=== PATIENT | female | born 1990 | race Caucasian/White ===

== ENCOUNTER 2020-03-02 05:05 | Inpatient (IN) | payer MEDICAID ==
[~2020-03-02 05:05] MED LIST: Lidocaine 1.5% with EPINEPHrine 1:200,000 5 ML Amp ONE
[2020-03-02] MEDS ORDERED: Nalbuphine 10 MG/1 ML Vial IVPUSH PRN (05:57)
[2020-03-02] MEDS ORDERED: Sodium Chloride 0.9% 10 ML Syringe FLUSH PRN (05:57)
[2020-03-02] MEDS ORDERED: Oxytocin/Lactated Ringers 10 UNIT/1,000 ML BAG IV SCH ×2 (06:00)
--- NOTE | 2020-03-02 07:03 | PCM.LDHP ---
L&D History of Present Illness - General Date of Service: 03/02/20 Admit Problem/Dx: Patient Status Order with Admit Dx/Problem 03/02/20 05:22 Patient Status [ADT] Routine 03/02/20 05:57 Patient Status [ADT] Routine Admission Diagnosis/Problem Admission Diagnosis/Problem Source of Information: Patient History Limitations: Reports: No Limitations - History of Present Illness Introduction:: Patient is a 29 y/o at 40 4/7 wks who presented early this AM with SROM/labor. Contractions very intense. No other concerns - Related Data Allergies/Adverse Reactions: Allergies Allergy/AdvReac Type Severity Reaction Status Date / Time Penicillins Allergy Rash Verified 03/02/20 05:57 salicylic acid Allergy Rash Verified 03/02/20 05:57 Home Medications: Home Meds Pnv No.95/Ferrous Fum/Folic AC [ Tablet] 1 each PO DAILY 03/02/20 [History] Past Medical History Cardiovascular History: Reports: Other (See Below) Other Cardiovascular History: enlarged aortic valve. followed up with echo as a child. 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 Para: 0 LMP (Approximate): - Infectious Disease History Infectious Disease History: Reports: Chicken Pox Other Infectious Disease History: as a child - Past Surgical History HEENT Surgical History: Reports: Naso-Sinus Surgery Social & Family History - Tobacco Use Tobacco Use Status *Q: Former Tobacco User Used Tobacco, but Quit: Yes Month/Year Tobacco Last Used: 06/22/2019 - Alcohol Use Alcohol Use History: No - Recreational Drug Use Recreational Drug Use: No H&P Review of Systems - Review of Systems: Review Of Systems: See Below General: Reports: No Symptoms Pulmonary: Reports: No Symptoms Cardiovascular: Reports: No Symptoms Gastrointestinal: Reports: No Symptoms Genitourinary: Reports: No Symptoms Musculoskeletal: Reports: No Symptoms Psychiatric: Reports: No Symptoms Neurological: Reports: No Symptoms L&D Exam - Exam Exam: See Below - Vital Signs Vital Signs: Last Vital Signs Temp 36.8 C 03/02/20 05:57 Pulse 90 03/02/20 05:57 Resp 14 03/02/20 05:57 BP 117/68 03/02/20 05:57 Pulse Ox 100 03/02/20 05:57 Weight: 86.183 kg - OB Specific Contraction Intensity: Moderate to Strong Movement: Active Heart Tones: Present Heart Tones per Min: 135 Heart Rate (FHR) Variability: Moderate (6-25 bmp) Presentation: Vertex - Exam General: Alert, Oriented, Cooperative Lungs: Clear to Auscultation, Normal Respiratory Effort Cardiovascular: Regular Rate, Regular Rhythm GI/Abdominal Exam: Soft, Non-Tender Genitourinary: Normal external exam Extremities: Normal Inspection Skin: Warm, Dry, Intact - Patient Data Lab Results Last 24 hrs: Laboratory Results - last 24 hr 03/02/20 03/02/20 Range/Units 05:30 06:25 WBC 9.50 (3.98-10.04) K/mm3 RBC 4.02 (3.98-5.22) M/mm3 Hgb 13.4 (11.2-15.7) gm/dl Hct 39.6 (34.1-44.9) % MCV 98.5 H (79.4-94.8) fl MCH 33.3 H (25.6-32.2) pg MCHC 33.8 (32.2-35.5) g/dl RDW Std Deviation 45.8 (36.4-46.3) fL Plt Count 190 (182-369) K/mm3 MPV 10.7 (9.4-12.3) fl Neut % (Auto) 81.9 H (34.0-71.1) % Lymph % (Auto) 10.9 L (19.3-51.7) % [place] % (Auto) 6.6 (4.7-12.5) % Eos % (Auto) 0.1 L (0.7-5.8) Baso % (Auto) 0.1 (0.1-1.2) % Neut # (Auto) 7.77 H (1.56-6.13) K/mm3 Lymph # (Auto) 1.04 L (1.18-3.74) K/mm3 [place] # (Auto) 0.63 H (0.24-0.36) K/mm3 Eos # (Auto) 0.01 L (0.04-0.36) K/mm3 Baso # (Auto) 0.01 (0.01-0.08) K/mm3 SARS-CoV-2 RNA (MATILDE) Negative (NEGATIVE) Result Diagrams: 03/02/20 06:25 - Problem List (1) 40 weeks gestation of SNOMED Code(s): 46671712 ICD Code: Z3A.40 - 40 WEEKS GESTATION OF Status: Acute Current Visit: Yes Problem List Initiated/Reviewed/Updated: Yes Orders Last 24hrs: Active Orders 24 hr Category Date Time Status Patient Status [ADT] Routine ADT 03/02/20 05:57 Active Activity as Tolerated [RC] PFP Care 03/02/20 05:57 Active Communication Order [RC] ASDIRECTED Care 03/02/20 05:57 Active Non Stress Test [RC] PER UNIT ROUTINE Care 03/02/20 05:22 Active Notify Provider [RC] PFP Care 03/02/20 05:57 Active Notify Provider [RC] PRN Care 03/02/20 05:57 Active Peripheral IV Care [RC] . DIRECTED Care 03/02/20 05:57 Active Pump Management, Intrathecal [RC] ASDIRECTED Care 03/02/20 05:58 Active Vital Signs [RC] PER UNIT ROUTINE Care 03/02/20 05:57 Active Regular Diet [DIET] Diet 03/02/20 Breakfast Active RAPID PLASMA REAGIN,RPR [CHEM] Routine Lab 03/02/20 05:57 Ordered TYPE AND SCREEN [BBK] Stat Lab 03/02/20 06:25 Received Lactated Ringers [Ringers, Lactated] 1,000 ml Med 03/02/20 06:00 Active IV ASDIRECTED Nalbuphine [Nubain] Med 03/02/20 05:57 Active 10 mg IVPUSH Q2H PRN Oxytocin/Lactated Ringers [Pitocin in LR 10 Units/1,000 Med 03/02/20 06:00 Active ML] 10 unit in 1,000 ml IV .CONTINUOUS Oxytocin/Lactated Ringers [Pitocin in LR 10 Units/1,000 Med 03/02/20 06:00 Active ML] 10 unit in 1,000 ml IV TITRATE Sodium Chloride 0.9% [Saline Flush] Med 03/02/20 05:57 Active 10 ml FLUSH ASDIRECTED PRN Electronic Heart Tones Ext w TOCO [WOMSER] Oth 03/02/20 05:57 Ordered Routine Electronic Heart Tones Internal [WOMSER] Per Unit Oth 03/02/20 05:57 Ordered Routine Peripheral IV Insertion Adult [OM.PC] Routine Oth 03/02/20 05:57 Ordered Resuscitation Status Routine Resus Stat 03/02/20 05:22 Ordered Medication Orders Lactated Ringer's (Ringers, Lactated) 1,000 mls @ 100 mls/hr IV ASDIRECTED BRITTANI Oxytocin/Lactated Ringer's (Pitocin In Lr 10 Units/1,000 Ml) 10 unit in 1,000 mls @ 12 mls/hr IV TITRATE BRITTANI; Protocol Oxytocin/Lactated Ringer's (Pitocin In Lr 10 Units/1,000 Ml) 10 unit in 1,000 mls @ 500 mls/hr IV .CONTINUOUS BRITTANI Nalbuphine HCl (Nubain) 10 mg IVPUSH Q2H PRN PRN Reason: Pain Sodium Chloride (Saline Flush) 10 ml FLUSH ASDIRECTED PRN PRN Reason: Keep Vein Open Assessment/Plan Comment:: * Labs done and normal * Continue to allow patient to labor, can augment if needed * GBS negative * Pain management per patient preference * Anticipate
[2020-03-02] MEDS: Lactated Ringers 1,000 ML IV SCH ×2 (10:10→14:32)
[2020-03-02] MEDS ORDERED: diphenhydrAMINE 50 MG/ML SDV IVPUSH PRN (12:06)
[2020-03-02] MEDS ORDERED: ePHEDrine 50 MG/ML SDV IVPUSH PRN (12:06)
[2020-03-02] MEDS ORDERED: fentaNYL 100 MCG/2 ML SDV EPIDUR PRN (12:06)
[2020-03-02] MEDS ORDERED: Bupivacaine/fentaNYL/NS 100 ML Bag EPIDUR PRN (12:06)
--- NOTE | 2020-03-02 12:22 | PCM.PREANE ---
Preanesthetic Assessment - Procedure Proposed Procedure: Continuous labor epidural - Anesthesia/Transfusion/Family Hx Anesthesia History: Prior Anesthesia Without Reaction Transfusion History: No Prior Transfusion(s) - Review of Systems General: No Symptoms Pulmonary: No Symptoms Cardiovascular: No Symptoms Gastrointestinal: No Symptoms Neurological: No Symptoms Other: Reports: None - Physical Assessment Vital Signs: Last Vital Signs Temp 98.2 F 03/02/20 05:57 Pulse 78 03/02/20 07:52 Resp 14 03/02/20 05:57 BP 106/56 L 03/02/20 07:52 Pulse Ox 100 03/02/20 05:57 Height: 1.68 m Weight: 86.183 kg ASA Class: 2 Mental Status: Alert & Oriented x3 Airway Class: Mallampati = 2 Dentition: Reports: Normal Dentition Thyro-Mental Finger Breadths: 3 Mouth Opening Finger Breadths: 3 ROM/Head Extension: Full Lungs: Clear to Auscultation, Normal Respiratory Effort Cardiovascular: Regular Rate, Regular Rhythm - Lab Values: Laboratory Last Values WBC 9.50 K/mm3 (3.98-10.04) 03/02/20 06:25 RBC 4.02 M/mm3 (3.98-5.22) 03/02/20 06:25 Hgb 13.4 gm/dl (11.2-15.7) 03/02/20 06:25 Hct 39.6 % (34.1-44.9) 03/02/20 06:25 MCV 98.5 fl (79.4-94.8) H 03/02/20 06:25 MCH 33.3 pg (25.6-32.2) H 03/02/20 06:25 MCHC 33.8 g/dl (32.2-35.5) 03/02/20 06:25 RDW Std Deviation 45.8 fL (36.4-46.3) 03/02/20 06:25 Plt Count 190 K/mm3 (182-369) 03/02/20 06:25 MPV 10.7 fl (9.4-12.3) 03/02/20 06:25 Neut % (Auto) 81.9 % (34.0-71.1) H 03/02/20 06:25 Lymph % (Auto) 10.9 % (19.3-51.7) L 03/02/20 06:25 [place] % (Auto) 6.6 % (4.7-12.5) 03/02/20 06:25 Eos % (Auto) 0.1 (0.7-5.8) L 03/02/20 06:25 Baso % (Auto) 0.1 % (0.1-1.2) 03/02/20 06:25 Neut # (Auto) 7.77 K/mm3 (1.56-6.13) H 03/02/20 06:25 Lymph # (Auto) 1.04 K/mm3 (1.18-3.74) L 03/02/20 06:25 [place] # (Auto) 0.63 K/mm3 (0.24-0.36) H 03/02/20 06:25 Eos # (Auto) 0.01 K/mm3 (0.04-0.36) L 03/02/20 06:25 Baso # (Auto) 0.01 K/mm3 (0.01-0.08) 03/02/20 06:25 SARS-CoV-2 RNA (MATILDE) Negative (NEGATIVE) 03/02/20 05:30 Blood Type A POSITIVE 03/02/20 06:25 Gel Antibody Screen Negative 03/02/20 06:25 - Allergies Allergies/Adverse Reactions: Allergies Allergy/AdvReac Type Severity Reaction Status Date / Time Penicillins Allergy Rash Verified 03/02/20 05:57 salicylic acid Allergy Rash Verified 03/02/20 05:57 - Acknowledgements Anesthesia Type Planned: Epidural Pt an Appropriate Candidate for the Planned Anesthesia: Yes Alternatives and Risks of Anesthesia Discussed w Pt/Guardian: Yes Pt/Guardian Understands and Agrees with Anesthesia Plan: Yes PreAnesthesia Questionnaire Cardiovascular History: Reports: Other (See Below) Other Cardiovascular History: enlarged aortic valve. followed up with echo as a child. 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: - Infectious Disease History Infectious Disease History: Reports: Chicken Pox Other Infectious Disease History: as a child - Past Surgical History HEENT Surgical History: Reports: Naso-Sinus Surgery, Other (See Below) Other HEENT Surgeries/Procedures: at age 3 - SUBSTANCE USE Tobacco Use Status *Q: Former Tobacco User Tobacco Use Within Last Twelve Months: No Recreational Drug Use History: No - HOME MEDS Home Medications: Home Meds Pnv No.95/Ferrous Fum/Folic AC [ Tablet] 1 each PO DAILY 03/02/20 [History] - CURRENT (IN HOUSE) MEDS Current Meds: Current Medications Diphenhydramine HCl (Benadryl) 25 mg IVPUSH Q6H PRN PRN Reason: pruritis Ephedrine Sulfate (Ephedrine Sulfate) 5 mg IVPUSH ASDIRECTED PRN PRN Reason: Hypotension Fentanyl (Sublimaze) 100 mcg EPIDUR Q3H PRN PRN Reason: Pain Fentanyl/Bupivacaine HCl (Fentanyl/Bupivacaine/Ns 2 Mcg-0.125% 100 Ml) 100 ml EPIDUR ASDIRECTED PRN PRN Reason: Pain Lactated Ringer's (Ringers, Lactated) 1,000 mls @ 100 mls/hr IV ASDIRECTED BRITTANI Last Admin: 03/02/20 10:10 Dose: 100 mls/hr Documented by: Oxytocin/Lactated Ringer's (Pitocin In Lr 10 Units/1,000 Ml) 10 unit in 1,000 mls @ 12 mls/hr IV TITRATE BRITTANI; Protocol Last Titration: 03/02/20 11:00 Dose: 4 munits/min, 24 mls/hr Documented by: Oxytocin/Lactated Ringer's (Pitocin In Lr 10 Units/1,000 Ml) 10 unit in 1,000 mls @ 500 mls/hr IV .CONTINUOUS BRITTANI Nalbuphine HCl (Nubain) 10 mg IVPUSH Q2H PRN PRN Reason: Pain Sodium Chloride (Saline Flush) 10 ml FLUSH ASDIRECTED PRN PRN Reason: Keep Vein Open
[2020-03-02] MEDS ORDERED: Misoprostol 200 MCG Tab ONE (18:00)
[2020-03-02] MEDS ORDERED: Misoprostol 200 MCG Tab PO STA (18:08)
--- NOTE | 2020-03-02 18:08 | PCM.DEL ---
L & D Note - General Info Date of Service: 03/02/20 - Delivery Note Labor: Augmented by Oxytocin Delivery Outcome: Livebirth Delivery Method: Spontaneous Vaginal Delivery-Single Delivery Mode: Spontaneous Presentation: Right Occiput Anterior (LUISA) Nuchal Cord: None Anesthesia Type: Epidural Amniotic Fluid Description: Clear Episiotomy Type: None Laceration: 2nd Degree Suture type: Vicryl Suture size: 2-0 Placenta: Intact, Spontaneous Cord: 3 Vessels Estimated Blood Loss: 250 Resuscitation Needed: Yes : Bulb Syringe, Stimulated, Warmed, Challenge Used, Warmer Used Delivery Comments (Free Text/Narrative):: Patient found to be complete and began pushing. With maternal pushing effort head delivered from an LUISA presentation. No nuchal cord present. With gentle downward traction the shoulders and body delivered. placed on maternal abdomen. Cord clamped and cut. Cord blood obtained. Next cord blood collected for private donation per instructions. Placenta then allowed time to separate and expelled intact. Inspection of the perineum showed a 2nd degree vaginal laceration which was repaired with a 2-0 Vicryl. Slight atony continued to be noted. Given 600 mcg with good response - General Info Date of Service: 03/02/20 - Patient Data Vitals - Most Recent: Last Vital Signs Temp 36.8 C 03/02/20 05:57 Pulse 96 03/02/20 17:00 Resp 14 03/02/20 05:57 BP 105/65 03/02/20 17:00 Pulse Ox 98 03/02/20 12:31 Weight - Most Recent: 86.183 kg Lab Results Last 24 Hours: Laboratory Results - last 24 hr 03/02/20 03/02/20 03/02/20 Range/Units 05:30 06:25 06:25 WBC 9.50 (3.98-10.04) K/mm3 RBC 4.02 (3.98-5.22) M/mm3 Hgb 13.4 (11.2-15.7) gm/dl Hct 39.6 (34.1-44.9) % MCV 98.5 H (79.4-94.8) fl MCH 33.3 H (25.6-32.2) pg MCHC 33.8 (32.2-35.5) g/dl RDW Std Deviation 45.8 (36.4-46.3) fL Plt Count 190 (182-369) K/mm3 MPV 10.7 (9.4-12.3) fl Neut % (Auto) 81.9 H (34.0-71.1) % Lymph % (Auto) 10.9 L (19.3-51.7) % [place] % (Auto) 6.6 (4.7-12.5) % Eos % (Auto) 0.1 L (0.7-5.8) Baso % (Auto) 0.1 (0.1-1.2) % Neut # (Auto) 7.77 H (1.56-6.13) K/mm3 Lymph # (Auto) 1.04 L (1.18-3.74) K/mm3 [place] # (Auto) 0.63 H (0.24-0.36) K/mm3 Eos # (Auto) 0.01 L (0.04-0.36) K/mm3 Baso # (Auto) 0.01 (0.01-0.08) K/mm3 SARS-CoV-2 RNA (MATILDE) Negative (NEGATIVE) Blood Type A POSITIVE Gel Antibody Screen Negative Med Orders - Current: Current Medications Diphenhydramine HCl (Benadryl) 25 mg IVPUSH Q6H PRN PRN Reason: pruritis Ephedrine Sulfate (Ephedrine Sulfate) 5 mg IVPUSH ASDIRECTED PRN PRN Reason: Hypotension Fentanyl (Sublimaze) 100 mcg EPIDUR Q3H PRN PRN Reason: Pain Last Admin: 03/02/20 12:30 Dose: 100 mcg Documented by: Fentanyl/Bupivacaine HCl (Fentanyl/Bupivacaine/Ns 2 Mcg-0.125% 100 Ml) 100 ml EPIDUR ASDIRECTED PRN PRN Reason: Pain Last Admin: 03/02/20 12:30 Dose: 100 ml Documented by: Lactated Ringer's (Ringers, Lactated) 1,000 mls @ 100 mls/hr IV ASDIRECTED BRITTANI Last Admin: 03/02/20 14:32 Dose: 100 mls/hr Documented by: Oxytocin/Lactated Ringer's (Pitocin In Lr 10 Units/1,000 Ml) 10 unit in 1,000 mls @ 12 mls/hr IV TITRATE BRITTANI; Protocol Last Titration: 03/02/20 16:57 Dose: 7 munits/min, 42 mls/hr Documented by: Oxytocin/Lactated Ringer's (Pitocin In Lr 10 Units/1,000 Ml) 10 unit in 1,000 mls @ 500 mls/hr IV .CONTINUOUS BRITTANI Nalbuphine HCl (Nubain) 10 mg IVPUSH Q2H PRN PRN Reason: Pain Sodium Chloride (Saline Flush) 10 ml FLUSH ASDIRECTED PRN PRN Reason: Keep Vein Open Discontinued Medications Misoprostol (Cytotec) Confirm Administered Dose 600 mcg .ROUTE .STK-MED ONE Stop: 03/02/20 18:01 - Problem List & Annotations (1) Vaginal delivery SNOMED Code(s): 471876036 Code(s): O80 - ENCOUNTER FOR FULL-TERM UNCOMPLICATED DELIVERY Status: Acute Current Visit: Yes (2) 40 weeks gestation of SNOMED Code(s): 14665562 Code(s): Z3A.40 - 40 WEEKS GESTATION OF Status: Acute Current Visit: Yes - Problem List Review Problem List Initiated/Reviewed/Updated: Yes - My Orders Last 24 Hours: My Active Orders 03/02/20 05:22 Resuscitation Status Routine 03/02/20 05:57 Patient Status [ADT] Routine Activity as Tolerated [RC] PFP Communication Order [RC] ASDIRECTED Notify Provider [RC] PFP Notify Provider [RC] PRN Peripheral IV Care [RC] Q2HR Vital Signs [RC] PER UNIT ROUTINE Nalbuphine [Nubain] 10 mg IVPUSH Q2H PRN Sodium Chloride 0.9% [Saline Flush] 10 ml FLUSH ASDIRECTED PRN Electronic Heart Tones Ext w TOCO [WOMSER] Routine Electronic Heart Tones Internal [WOMSER] Per Unit Routine Peripheral IV Insertion Adult [OM.PC] Routine 03/02/20 05:58 Pump Management, Intrathecal [RC] ASDIRECTED 03/02/20 06:00 Lactated Ringers [Ringers, Lactated] 1,000 ml IV ASDIRECTED Oxytocin/Lactated Ringers [Pitocin in LR 10 Units/1,000 ML] 10 unit in 1,000 ml IV .CONTINUOUS Oxytocin/Lactated Ringers [Pitocin in LR 10 Units/1,000 ML] 10 unit in 1,000 ml IV TITRATE 03/02/20 06:25 RAPID PLASMA REAGIN,RPR [CHEM] Routine 03/02/20 Breakfast Regular Diet [DIET] 03/02/20 10:04 PATIENT RETYPE [BBK] Routine 03/02/20 14:34 Urinary Catheter Assessment [RC] ASDIRECTED 03/02/20 14:45 Zarate Catheter Insertion [Insert Urinary Catheter] [OM.PC] Q24H - Assessment Assessment:: PPD#0 - Plan Plan:: * Routine cares * Breast feeding * Discharge home in 1-2 days
[2020-03-02] MEDS ORDERED: Docusate Sodium 100 MG Cap PO PRN (19:17)
[2020-03-02] MEDS ORDERED: Benzocaine/Menthol 20%-0.5% Spray 56 GM Canister TOP PRN (19:17)
[2020-03-02] MEDS ORDERED: Acetaminophen 325 MG Tab PO PRN (19:17)
[2020-03-02] MEDS: Witch Hazel Medicated Pads 40/Jar TOP PRN (19:44)
[2020-03-02] MEDS: Ibuprofen 600 MG Tab PO PRN (19:45)
[2020-03-03] MEDS: Ibuprofen 600 MG Tab PO PRN ×3 (02:30→18:30)
--- NOTE | 2020-03-03 04:54 | PCM.PNPP ---
- General Info Date of Service: 03/03/20 Functional Status: Reports: Pain Controlled, Tolerating Diet, Ambulating, Urinating - Review of Systems General: Reports: No Symptoms Pulmonary: Reports: No Symptoms Cardiovascular: Reports: No Symptoms Gastrointestinal: Reports: No Symptoms Genitourinary: Reports: No Symptoms Musculoskeletal: Reports: No Symptoms - General Info Date of Service: 03/03/20 - Patient Data Vital Signs - Most Recent: Last Vital Signs Temp 36.7 C 03/03/20 02:35 Pulse 79 03/03/20 02:35 Resp 16 03/03/20 02:35 BP 91/62 03/03/20 02:35 Pulse Ox 95 03/03/20 02:35 Weight - Most Recent: 86.183 kg I&O - Last 24 Hours: Intake & Output 03/02/20 03/02/20 03/03/20 14:59 22:59 06:59 Intake Total 3000 Balance 3000 Lab Results - Last 24 Hours: Laboratory Results - last 24 hr 03/02/20 03/02/20 03/02/20 Range/Units 05:30 06:25 06:25 WBC 9.50 (3.98-10.04) K/mm3 RBC 4.02 (3.98-5.22) M/mm3 Hgb 13.4 (11.2-15.7) gm/dl Hct 39.6 (34.1-44.9) % MCV 98.5 H (79.4-94.8) fl MCH 33.3 H (25.6-32.2) pg MCHC 33.8 (32.2-35.5) g/dl RDW Std Deviation 45.8 (36.4-46.3) fL Plt Count 190 (182-369) K/mm3 MPV 10.7 (9.4-12.3) fl Neut % (Auto) 81.9 H (34.0-71.1) % Lymph % (Auto) 10.9 L (19.3-51.7) % [place] % (Auto) 6.6 (4.7-12.5) % Eos % (Auto) 0.1 L (0.7-5.8) Baso % (Auto) 0.1 (0.1-1.2) % Neut # (Auto) 7.77 H (1.56-6.13) K/mm3 Lymph # (Auto) 1.04 L (1.18-3.74) K/mm3 [place] # (Auto) 0.63 H (0.24-0.36) K/mm3 Eos # (Auto) 0.01 L (0.04-0.36) K/mm3 Baso # (Auto) 0.01 (0.01-0.08) K/mm3 RPR Non-reactive (NONREACTIVE) SARS-CoV-2 RNA (MATILDE) Negative (NEGATIVE) Blood Type Gel Antibody Screen 03/02/20 Range/Units 06:25 WBC (3.98-10.04) K/mm3 RBC (3.98-5.22) M/mm3 Hgb (11.2-15.7) gm/dl Hct (34.1-44.9) % MCV (79.4-94.8) fl MCH (25.6-32.2) pg MCHC (32.2-35.5) g/dl RDW Std Deviation (36.4-46.3) fL Plt Count (182-369) K/mm3 MPV (9.4-12.3) fl Neut % (Auto) (34.0-71.1) % Lymph % (Auto) (19.3-51.7) % [place] % (Auto) (4.7-12.5) % Eos % (Auto) (0.7-5.8) Baso % (Auto) (0.1-1.2) % Neut # (Auto) (1.56-6.13) K/mm3 Lymph # (Auto) (1.18-3.74) K/mm3 [place] # (Auto) (0.24-0.36) K/mm3 Eos # (Auto) (0.04-0.36) K/mm3 Baso # (Auto) (0.01-0.08) K/mm3 RPR (NONREACTIVE) SARS-CoV-2 RNA (MATILDE) (NEGATIVE) Blood Type A POSITIVE Gel Antibody Screen Negative Med Orders - Current: Current Medications Acetaminophen (Tylenol) 650 mg PO Q4H PRN PRN Reason: mild pain or fever Benzocaine/Menthol (Dermoplast Pain Relief [place]) 0 gm TOP ASDIRECTED PRN PRN Reason: Perineal Comfort Measure Last Admin: 03/02/20 19:44 Dose: 1 applic Documented by: Docusate Sodium (Colace) 100 mg PO BID PRN PRN Reason: Constipation Ibuprofen (Motrin) 600 mg PO Q6H PRN PRN Reason: Mild pain or fever Last Admin: 03/03/20 02:30 Dose: 600 mg Documented by: Sina Rodriguez (Jazmine) 1 pad TOP ASDIRECTED PRN PRN Reason: Perineal Comfort Measure Last Admin: 03/02/20 19:44 Dose: 1 applic Documented by: Discontinued Medications Diphenhydramine HCl (Benadryl) 25 mg IVPUSH Q6H PRN PRN Reason: pruritis Ephedrine Sulfate (Ephedrine Sulfate) 5 mg IVPUSH ASDIRECTED PRN PRN Reason: Hypotension Fentanyl (Sublimaze) 100 mcg EPIDUR Q3H PRN PRN Reason: Pain Last Admin: 03/02/20 12:30 Dose: 100 mcg Documented by: Fentanyl/Bupivacaine HCl (Fentanyl/Bupivacaine/Ns 2 Mcg-0.125% 100 Ml) 100 ml EPIDUR ASDIRECTED PRN PRN Reason: Pain Last Admin: 03/02/20 12:30 Dose: 100 ml Documented by: Lactated Ringer's (Ringers, Lactated) 1,000 mls @ 100 mls/hr IV ASDIRECTED BRITTANI Last Admin: 03/02/20 14:32 Dose: 100 mls/hr Documented by: Oxytocin/Lactated Ringer's (Pitocin In Lr 10 Units/1,000 Ml) 10 unit in 1,000 mls @ 12 mls/hr IV TITRATE BRITTANI; Protocol Last Titration: 03/02/20 18:45 Dose: 25 munits/min, 150 mls/hr Documented by: Oxytocin/Lactated Ringer's (Pitocin In Lr 10 Units/1,000 Ml) 10 unit in 1,000 mls @ 500 mls/hr IV .CONTINUOUS BRITTANI Misoprostol (Cytotec) Confirm Administered Dose 600 mcg .ROUTE .STK-MED ONE Stop: 03/02/20 18:01 Last Admin: 03/02/20 18:28 Dose: Not Given Documented by: Misoprostol (Cytotec) 600 mcg PO NOW STA Stop: 03/02/20 18:09 Last Admin: 03/02/20 18:00 Dose: 600 mcg Documented by: Nalbuphine HCl (Nubain) 10 mg IVPUSH Q2H PRN PRN Reason: Pain Sodium Chloride (Saline Flush) 10 ml FLUSH ASDIRECTED PRN PRN Reason: Keep Vein Open - Interaction Infant Disposition, : in Room with Family Interaction: Holding Infant Feeding: Attempted ; Nursed Fair/Poor Support Person: Significant Other - Recovery Exam Fundal Tone: Firm Fundal Level: At Umbilicus Fundal Placement: Midline Lochia Amount: Small, Moderate Lochia Color: Rubra/Red Perineum Description: Other (see below) Other Perinuem Description: 2nd degree with repair Episiotomy/Laceration: Approximated Bladder Status: Voiding - Exam General: Alert, Oriented, Cooperative GI/Abdominal Exam: Soft, Non-Tender Extremities: Normal Inspection Skin: Warm, Dry, Intact - Problem List & Annotations (1) Vaginal delivery SNOMED Code(s): 541838804 Code(s): O80 - ENCOUNTER FOR FULL-TERM UNCOMPLICATED DELIVERY Status: Acute Current Visit: Yes (2) 40 weeks gestation of SNOMED Code(s): 46190492 Code(s): Z3A.40 - 40 WEEKS GESTATION OF Status: Acute Current Visit: Yes - Problem List Review Problem List Initiated/Reviewed/Updated: Yes - My Orders Last 24 Hours: My Active Orders 03/02/20 05:22 Resuscitation Status Routine 03/02/20 Dinner Regular Diet [DIET] 03/02/20 19:17 Acetaminophen [TylenoL] 650 mg PO Q4H PRN Benzocaine/Menthol [Dermoplast Pain Relief [place]] See Dose Instructions TOP ASDIRECTED PRN Docusate Sodium [Colace] 100 mg PO BID PRN Ibuprofen [Motrin] 600 mg PO Q6H PRN witch Star [Tucks] 1 pad TOP ASDIRECTED PRN Heat Therapy [OM.PC] PRN 03/02/20 19:17 Activity as Tolerated [RC] PER UNIT ROUTINE Vital Signs [RC] 03,09,15,21 Assess Lochia [WOMSER] Per Unit Routine Assess Uterine Involution [WOMSER] Per Unit Routine Breast Pump [WOMSER] Per Unit Routine Ice Therapy [OM.PC] Per Unit Routine Perineal Care [OM.PC] Per Unit Routine Peripheral IV Discontinue [OM.PC] Routine Sitz Bath [OM.PC] Per Unit Routine 03/03/20 19:17 Heat Therapy [OM.PC] PRN - Assessment Assessment:: PPD#1 - Plan Plan:: * Routine cares * Breast feeding * Discharge home tomorrow
--- NOTE | 2020-03-03 08:05 | PCM48HPAN ---
Post Anesthesia Note - EVALUATION WITHIN 48HRS OF ANESTHETIC Vital Signs in Normal Range: Yes Patient Participated in Evaluation: Yes Respiratory Function Stable: Yes Airway Patent: Yes Cardiovascular Function Stable: Yes Hydration Status Stable: Yes Pain Control Satisfactory: Yes Nausea and Vomiting Control Satisfactory: Yes Mental Status Recovered: Yes Vital Signs: Last Vital Signs Temp 36.7 C 03/03/20 02:35 Pulse 79 03/03/20 02:35 Resp 16 03/03/20 02:35 BP 91/62 03/03/20 02:35 Pulse Ox 95 03/03/20 02:35
--- NOTE | 2020-03-03 18:12 | PCM.DCSUM1 ---
Discharge Summary - Hospital Course Free Text/Narrative:: - General Info Date of Service: 03/02/20 - Delivery Note Labor: Augmented by Oxytocin Delivery Outcome: Livebirth Delivery Method: Spontaneous Vaginal Delivery-Single Infant Delivery Mode: Spontaneous Presentation: Right Occiput Anterior (LUISA) Nuchal Cord: None Anesthesia Type: Epidural Amniotic Fluid Description: Clear Episiotomy Type: None Laceration: 2nd Degree Suture type: Vicryl Suture size: 2-0 Placenta: Intact, Spontaneous Cord: 3 Vessels Estimated Blood Loss: 250 Resuscitation Needed: Yes : Bulb Syringe, Stimulated, Warmed, [place] Used, Warmer Used Delivery Comments (Free Text/Narrative):: Patient found to be complete and began pushing. With maternal pushing effort head delivered from an LUISA presentation. No nuchal cord present. With gentle downward traction the shoulders and body delivered. placed on maternal abdomen. Cord clamped and cut. Cord blood obtained. Next cord blood collected for private donation per instructions. Placenta then allowed time to separate and expelled intact. Inspection of the perineum showed a 2nd degree vaginal laceration which was repaired with a 2-0 Vicryl. Slight atony continued to be noted. Given 600 mcg with good response Diagnosis: Stroke: No - Discharge Data Discharge Date: 03/03/20 Discharge Disposition: Home, Self-Care 01 Condition: Good - Referral to Home Health Primary Care Physician: Jackie Dinero MD - Patient Summary/Data Complications: None Consults: None Hospital Course: Ashley Padilla was admitted for spontaneous rupture membranes with clear fluid. On admission her cervix was dilated to 1-2 cm. She was GBS negative. She was given pitocin for augmentation. She was given an epidural for anesthesia. She progressed to complete and began pushing. On 03/02/2020 she had a normal vaginal delivery of a live female at 17:44. Apgars of 7 and 9. Weight of 3910 g (8 pounds 9.9 ounces). Her course was uneventful. Her pain was well controlled and she had minimal lochia. She was ambulating, tolerating a regular diet and voiding normally. She was breast-feeding with minimal difficulty. She was afebrile and her hematocrit was 39.6 on admission. She desired to be discharged home in the evening of PPD #1. Her blood type is A+. - Patient Instructions Diet: Regular Diet as Tolerated Activity: Apply Ice, As Tolerated Activity, Other: Nothing in the vagina for 6 weeks Driving: May Drive Today Showering/Bathing: May Shower Notify Provider of: Fever, Increased Pain, Swelling and Redness, Drainage, Nausea and/or Vomiting Other/Special Instructions: Please contact your physician's office if you have heavy vaginal bleeding enough to soak a pad in less than an hour for several hours. Monitor for any signs of an infection in the breasts with severe pain or redness of the breast. - Discharge Plan *PRESCRIPTION DRUG MONITORING PROGRAM REVIEWED*: Not Applicable *COPY OF PRESCRIPTION DRUG MONITORING REPORT IN PATIENT ETIENNE: Not Applicable Home Medications: Home Meds Pnv No.95/Ferrous Fum/Folic AC [ Tablet] 1 each PO DAILY 03/02/20 [History] Acetaminophen [Tylenol] 650 mg PO Q6H PRN tablet 03/03/20 [Rx] Benzocaine/Menthol [Dermoplast Pain Relief [place]] 1 spray TOP ASDIRECTED PRN canister 03/03/20 [Rx] Docusate Sodium [Colace] 100 mg PO BID PRN cap 03/03/20 [Rx] Ibuprofen [Motrin] 600 mg PO Q6H PRN tablet 03/03/20 [Rx] witch Star [Tucks] 1 pad TOP ASDIRECTED PRN pad 03/03/20 [Rx] Patient Handouts: Care of a Perineal Tear, Care After Vaginal Delivery Referrals: Jackie Dinero MD [Primary Care Provider] - (Follow-up in 3 to 6 weeks for routine visit or earlier as needed.) - Discharge Summary/Plan Comment DC Time >30 min.: No - Patient Data Vitals - Most Recent: Last Vital Signs Temp 36.6 C 03/03/20 14:34 Pulse 76 03/03/20 14:34 Resp 15 03/03/20 14:34 BP 112/60 03/03/20 14:34 Pulse Ox 97 03/03/20 14:34 Weight - Most Recent: 86.183 kg I&O - Last 24 hours: Intake & Output 03/03/20 03/03/20 03/03/20 06:59 14:59 22:59 Intake Total 300 Balance 300 Lab Results - Last 24 hrs: Laboratory Results - last 24 hr 03/02/20 Range/Units 06:25 RPR Non-reactive (NONREACTIVE) Med Orders - Current: Current Medications Acetaminophen (Tylenol) 650 mg PO Q4H PRN PRN Reason: mild pain or fever Benzocaine/Menthol (Dermoplast Pain Relief [place]) 0 gm TOP ASDIRECTED PRN PRN Reason: Perineal Comfort Measure Last Admin: 03/02/20 19:44 Dose: 1 applic Documented by: Docusate Sodium (Colace) 100 mg PO BID PRN PRN Reason: Constipation Ibuprofen (Motrin) 600 mg PO Q6H PRN PRN Reason: Mild pain or fever Last Admin: 03/03/20 08:27 Dose: 600 mg Documented by: Sina Rodriguez (Jazmine) 1 pad TOP ASDIRECTED PRN PRN Reason: Perineal Comfort Measure Last Admin: 03/02/20 19:44 Dose: 1 applic Documented by: Discontinued Medications Diphenhydramine HCl (Benadryl) 25 mg IVPUSH Q6H PRN PRN Reason: pruritis Ephedrine Sulfate (Ephedrine Sulfate) 5 mg IVPUSH ASDIRECTED PRN PRN Reason: Hypotension Fentanyl (Sublimaze) 100 mcg EPIDUR Q3H PRN PRN Reason: Pain Last Admin: 03/02/20 12:30 Dose: 100 mcg Documented by: Fentanyl/Bupivacaine HCl (Fentanyl/Bupivacaine/Ns 2 Mcg-0.125% 100 Ml) 100 ml EPIDUR ASDIRECTED PRN PRN Reason: Pain Last Admin: 03/02/20 12:30 Dose: 100 ml Documented by: Lactated Ringer's (Ringers, Lactated) 1,000 mls @ 100 mls/hr IV ASDIRECTED BRITTANI Last Admin: 03/02/20 14:32 Dose: 100 mls/hr Documented by: Oxytocin/Lactated Ringer's (Pitocin In Lr 10 Units/1,000 Ml) 10 unit in 1,000 mls @ 12 mls/hr IV TITRATE BRITTANI; Protocol Last Titration: 03/02/20 18:45 Dose: 25 munits/min, 150 mls/hr Documented by: Oxytocin/Lactated Ringer's (Pitocin In Lr 10 Units/1,000 Ml) 10 unit in 1,000 mls @ 500 mls/hr IV .CONTINUOUS BRITTANI Lidocaine/Epinephrine (Xylocaine-Mpf 1.5% W/Epinephrine 1:200,000) 5 ml .ROUTE .STK-MED ONE Stop: 03/02/20 00:01 Misoprostol (Cytotec) Confirm Administered Dose 600 mcg .ROUTE .STK-MED ONE Stop: 03/02/20 18:01 Last Admin: 03/02/20 18:28 Dose: Not Given Documented by: Misoprostol (Cytotec) 600 mcg PO NOW STA Stop: 03/02/20 18:09 Last Admin: 03/02/20 18:00 Dose: 600 mcg Documented by: Nalbuphine HCl (Nubain) 10 mg IVPUSH Q2H PRN PRN Reason: Pain Sodium Chloride (Saline Flush) 10 ml FLUSH ASDIRECTED PRN PRN Reason: Keep Vein Open
[2020-03-03] MEDS: Witch Hazel Medicated Pads 40/Jar TOP PRN (18:31)
== END 2020-03-03 18:45 | disposition home or self-care (01) | DRG 807 ==
LOC: JD.OBCHECK 05:05 → JD.OB 05:12 → UNDOADMOB 06:03 → JD.OBCHECK 06:03 → JD.OB 06:03 → OBSVTOIN 17:44 → JD.OB 17:45
PROVIDERS: ADMIT Obstetrics & Gynecology; ATTEND Obstetrics & Gynecology
PROC: 10E0XZZ Delivery of Products of Conception, External Approach (ICD-10-PCS; principal; 2020-03-02)
PROC: 0KQM0ZZ Repair Perineum Muscle, Open Approach (ICD-10-PCS; 2020-03-02)
PROC: 3E0R3BZ Introduction of Anesthetic Agent into Spinal Canal, Percutaneous Approach (ICD-10-PCS; 2020-03-02)
PROC: 00HU33Z Insertion of Infusion Device into Spinal Canal, Percutaneous Approach (ICD-10-PCS; 2020-03-02)
DX: O70.1 Second degree perineal laceration during delivery (principal); Z37.0 Single live birth; Z3A.40 40 weeks gestation of pregnancy; Z20.828 Contact with and (suspected) exposure to other viral communicable diseases
CPT/HCPCS: 01967; 36415; 51702; 59025; 59409; 85025; 86592; 86850; 86900; 86901; A9270-GY; J2590; J3010; J7120; U0002